=== PATIENT | male | born 1950 | race Asian ===

== ENCOUNTER 2017-06-22 16:09 | Inpatient (IN) | payer OTHER ==
[~2017-06-22] VITALS: Ht 170.2 cm; Wt 59.0 kg
[2017-06-22 16:11] VITALS: BP 120/70
[2017-06-22] MEDS ORDERED: CRAN450C PO (16:16)
[2017-06-22] MEDS ORDERED: PRED5TAB7 PO (16:17)
[2017-06-22] MEDS ORDERED: LACT1TAB34 PO (16:17)
[2017-06-22] MEDS ORDERED: ASCO500T45 PO (16:17)
[2017-06-22] MEDS ORDERED: MAGN400S60 PO (16:17)
[2017-06-22] MEDS ORDERED: SODI650T2 PO (16:17)
[2017-06-22] MEDS ORDERED: PANT40EC PO (16:17)
[2017-06-22] MEDS ORDERED: FURO-570 PO (16:17)
[2017-06-22] MEDS ORDERED: ACET-2619 PO (16:17)
[2017-06-22] MEDS ORDERED: RIFA550T PO (16:17)
[2017-06-22] MEDS ORDERED: FOLI1TAB90 PO (16:17)
[2017-06-22] MEDS ORDERED: DOCU-299 PO (16:17)
[2017-06-22] MEDS ORDERED: BISA-213 RC (16:17)
[2017-06-22] MEDS ORDERED: THIA-4 PO (16:17)
[2017-06-22] MEDS ORDERED: LACT10SO11 PO (16:17)
--- NOTE | 2017-06-22 16:21 | NUR ---
PATIENT PRESENTS TO ED WITH NO COMPLAINS BUT SENT FOR ABNORMAL LABS HYPOKALEMIA . PT STATES . DENIES N/V/D; SKIN IS JAUNDICE/WARM/DRY; AAOX4 WITH EVEN AND STEADY GAIT; LUNGS CLEAR BL; HR EVEN AND REGULAR; PT DENIES ANY FEVER, CP, SOB, OR COUGH AT THIS TIME; PATIENT STATES PAIN OF 0/10 AT THIS TIME; VSS; PATIENT POSITIONED FOR COMFORT; HOB ELEVATED; BEDRAILS UP X2; BED DOWN. ER MD MADE AWARE OF PT STATUS.
--- NOTE | 2017-06-22 16:49 | NUR ---
PT NOTED WITH FRAGILE SKIN AND SENAL PURPRUA ON BOTH ARMS HE ALSO HAS AN OLD SKIN TEAR ON R ARM. ALSO PT HAS F/C WITH 14 FENCH DRAINING YELLOW URINE.
--- NOTE | 2017-06-22 17:20 | NUR ---
AT BEDSIDE EVALUATING PT.
--- NOTE | 2017-06-22 17:42 | NUR ---
EKG AND LABS DRAWS DONE AT BEDSIDE PT COOPERATIVE.
[2017-06-22 17:47] LABS: HEMATOCRIT 29.6 % (36-52); HEMOGLOBIN 9.8 g/dL (12.0-18.0); MEAN CORPUSCULAR HEMOGLOBIN 36 pg (27-31); MEAN CORPUSCULAR HGB CONC 33 g/dL (33-37); MEAN CORPUSCULAR VOLUME 109.2 fL (80-94); PLATELET COUNT (AUTO) 155 K/uL (140-450); RED BLOOD CELL COUNT(AUTO) 2.71 MIL/uL (4.20-6.10); RED CELL DISTRIBUTION WIDTH 14.8 % (11.6-13.7); WHITE BLOOD COUNT (AUTO) 15.9 K/uL (4.8-10.8)
[2017-06-22 18:08] LABS: ALBUMIN 2.3 g/dL (3.4-5.0); ANION GAP 13.8 (8-16); CREATININE 0.8 mg/dL (0.7-1.3); TOTAL BILIRUBIN 6.3 mg/dL (0.0-1.0)
[2017-06-22 18:11] LABS: LYMPHOCYTES % (MANUAL) 3 % (20-46); MONOCYTES % (MANUAL) 2 % (5-12)
[2017-06-22 18:15] LABS: POTASSIUM 2.8 mmol/L (3.5-5.1)
[2017-06-22] MEDS ORDERED: POTASSIUM CHLORIDE 10 MEQ TABER PO ONE ×2 (18:30→22:55)
--- NOTE | 2017-06-22 18:41 | NUR ---
ULTRA SOUND AT BEDSIDE
--- NOTE | 2017-06-22 19:01 | NUR ---
taken to ct
[2017-06-22 19:04] LABS: APPEARANCE,URINE CLEAR (CLEAR); BILIRUBIN,URINE NEGATIVE (NEGATIVE); BLOOD, URINE TRACE-I (NEGATIVE); LEUKOCYTE ESTERASE ,URINE TRACE (NEGATIVE); NITRITE, URINE NEGATIVE (NEGATIVE); UGLUCOSE NEGATIVE (NEGATIVE)
[2017-06-22 19:19] LABS: COLOR,URINE STRAW (YELLOW)
[2017-06-22 19:25] LABS: RBC,URINE 3-10 (FEW) /HPF (0-5)
[2017-06-22 19:26] LABS: WBC,URINE 0-5 (RARE) /HPF (0-5)
--- NOTE | 2017-06-22 19:26 | NUR ---
REPORT RECEIVED FROM MAGDI BAUTISTA
[2017-06-22] MEDS ORDERED: ACETAMINOPHEN 325 MG TAB PO PRN (20:20)
[2017-06-22] MEDS ORDERED: ONDANSETRON 4 MG/2 ML VIAL IVP PRN (20:20)
[2017-06-22] MEDS ORDERED: HYDROcodone/APAP 7.5/325 MG 1 TAB PO PRN (20:20)
--- NOTE | 2017-06-22 20:25 | NUR ---
Quentin lanza in EDM - 06/22/17 at 2031 by PEYMAN Patient discharged with v/s stable. Written and verbal after care instructions given and explained. Patient verbalized understanding. Ambulatory with steady gait. All questions addressed prior to discharge. Advised to follow up with PMD.
--- NOTE | 2017-06-22 20:42 | NUR ---
Patient noted to have existing wounds upon arrival to ER. Photos taken of wound and placed in chart. Wound covered with dressing. Physician informed.
--- NOTE | 2017-06-22 20:45 | NUR ---
EMPTIED PARKER CATH, VOID 1600CC OUT, CLEAR YELLOW
[2017-06-22] MEDS ORDERED: DOCUSATE SODIUM 100 MG GELCAP PO SCH (21:00)
--- NOTE | 2017-06-22 21:03 | NUR ---
Pt transferred to [facility] viaBED with MAGDI BERNAL .
--- NOTE | 2017-06-22 21:10 | NUR ---
RECEIVED FROM ER PER ALBA AWAKE AND ALERT. ABLE TO VERBALIZE SIMPLE NEEDS. DX. OF HYPOKALEMIA. MEDICATED WITH POTASSIUM P.O. MEDICATION IN ER PER RN REPORT. WITH DECUBITUS ULCER IN THE SACRUM AND WITH PICTURE BY ER. PROVIDED WITH SNACK RT C/O HUNGER. ROM X 4. CLEAR SPEECH. A/O X 3. NO SOB. IVF SITE TO RIGHT WRIST #20 INTACT. AFEBRILE.
[2017-06-22 21:37] LABS: CHOL/HDL RATIO 4.5 (1-4.5); FREE T4 (FREE THYROXINE) 1.22 ng/dL (0.76-1.46); PHOSPHORUS 4.1 mg/dL (2.5-4.9); THYROID STIMULATING HORMONE 6.92 uIU/mL (0.34-3.74)
[2017-06-22 21:39] VITALS: BP 120/70
[2017-06-22 22:05] LABS: MAGNESIUM 0.9 mg/dL (1.8-2.4)
[2017-06-22] MEDS ORDERED: MAG SULF 2000 MG/WATER PREMIX 100 ML IV ONE (22:05)
--- NOTE | 2017-06-22 22:06 | NUR ---
CALLED RESIDENT MD MILLAN FOR MAGNESIUM LEVEL REPORTED TO ME BY LAB . TECH AT 2205 . MAGNESIUM LEVEL IS 0.9. INFORMED CHARGE NURSE .
[2017-06-22] MEDS: RIFAXIMIN 550 MG TAB PO SCH (22:10)
[2017-06-22] MEDS ORDERED: BISACODYL 10 MG SUPP RC PRN (22:10)
[2017-06-22] MEDS ORDERED: MAGNESIUM HYDROXIDE 2400 MG/30 ML UDC PO PRN (22:10)
[2017-06-22] MEDS ORDERED: LORazepam 2 MG/ML VIAL IVP PRN (22:45)
[2017-06-22] MEDS: PIPER/TAZO 3.375GM/D5W PREMIX 50 ML IV SCH ×2 (22:55→23:53)
[2017-06-22] MEDS ORDERED: PIPERACILLIN/TAZOBACTAM 3.375 GM VIAL IV ONE (23:14)
[2017-06-22] MEDS ORDERED: LACTULOSE 20 GM/30 ML UDC ONE (23:31)
[2017-06-22] MEDS: LACTULOSE 20 GM/30 ML UDC PO SCH (23:34)
--- NOTE | 2017-06-22 23:37 | NUR ---
MAG RIDER 4 GMS ORDERED INFUSING AT THIS TIME. PT. SLEEPING. NO PAIN COMPLAINTS DONE.
--- NOTE | 2017-06-22 23:46 | NUR ---
RIFAXAN P.O. 550 MG ORDERED PER MD TO START IN AM INSTEAD. CHARGE NURSE AWARE.
[2017-06-23] VITALS: BP 110/72
[2017-06-23 00:31] LABS: BARBITURATE, URINE NEGATIVE ng/ml (NEG <=200); BENZODIAZEPINE, URINE NEGATIVE ng/mL (NEG <=200); CANNABINOID, URINE NEGATIVE ng/mL (NEG <=50); COCAINE, URINE NEGATIVE ng/mL (NEG <=300); OPIATE, URINE NEGATIVE ng/mL (NEG <=2000); PHENCYCLIDINE SCREEN,URINE NEGATIVE ng/mL (NEG <=25)
--- NOTE | 2017-06-23 03:25 | NUR ---
OPEN WOUND TO SACRAL AREA CLEANSED WITH NS , PAT DRIED AND COVERED WITH 4X4 OPTIMUM FOAM.
[2017-06-23] MEDS ORDERED: PIPERACILLIN/TAZOBACTAM 3.375 GM VIAL IV ONE (05:08)
[2017-06-23] MEDS: PIPER/TAZO 3.375GM/D5W PREMIX 50 ML IV SCH ×3 (05:13→17:02)
[2017-06-23 06:10] VITALS: BP 122/78
--- NOTE | 2017-06-23 07:15 | NUR ---
TELEMETRY MONITORING.PT. AWAKE AND ALERT X 3. ABLE TO VERBALIZE NEEDS WELL. ENDORSED TO THE NEXT RN FOR CONTINUITY OF CARE. DX. HYPOKALEMIA.
--- NOTE | 2017-06-23 07:20 | NUR ---
RECEIVED REPORT FROM STEAM SETTER NURSE AT BEDSIDE FOR CONTINUITY OF CARE. PATIENT IN BED AWAKE AND ABLE TO MAKE NEEDS KNOWN.
[2017-06-23 07:24] LABS: BASOPHILS # (AUTO) 0.1 K/uL (0.00-0.22); BASOPHILS % (AUTO) 0.5 % (0.0-2.0); EOSINOPHILS % (AUTO) 0.2 % (0.0-4.0); HEMATOCRIT 26.1 % (36-52); HEMOGLOBIN 8.6 g/dL (12.0-18.0); LYMPHOCYTES # (AUTO) 0.6 K/uL (2.0-11.5); LYMPHOCYTES % (AUTO) 4.7 % (20.5-51.1); MEAN CORPUSCULAR HEMOGLOBIN 37 pg (27-31); MEAN CORPUSCULAR HGB CONC 33 g/dL (33-37); MEAN CORPUSCULAR VOLUME 111.6 fL (80-94); MONOCYTES # (AUTO) 0.8 K/uL (0.8-1.0); MONOCYTES % (AUTO) 6.6 % (1.7-9.3); NEUTROPHILS # (AUTO) 10.3 K/uL (1.8-7.7); PLATELET COUNT (AUTO) 125 K/uL (140-450); RED BLOOD CELL COUNT(AUTO) 2.34 MIL/uL (4.20-6.10); RED CELL DISTRIBUTION WIDTH 14.6 % (11.6-13.7); WHITE BLOOD COUNT (AUTO) 11.8 K/uL (4.8-10.8)
[2017-06-23 07:26] LABS: MAGNESIUM 2.2 mg/dL (1.8-2.4); PHOSPHORUS 3.1 mg/dL (2.5-4.9)
[2017-06-23 07:42] LABS: ANION GAP 13.8 (8-16); CARBON DIOXIDE 25.8 mmol/L (21-32); CREATININE 0.8 mg/dL (0.7-1.3); POTASSIUM 3.6 mmol/L (3.5-5.1)
--- NOTE | 2017-06-23 08:00 | NUR ---
INITIAL ASSESSMENT PERFORMED . PATIENT ALERT AND ABLE TO MAKE NEEDS KNOWN WITH SOME NOTED CONFUSION. NO ACUTE DISTRESS. RESP EVEN AND UNLABORED. BOWEL SOUNDS ACTIVE. PATIENT STATES DOES NOT KNOWN LAST BM. DENIES PAIN AT THIS TIME. PATIENT ON FALL. IV SITE TO RIGHT WRIST 20G SL. PATIENT WITH SACRAL PRESSURE WOUND WITH DRY DSG IN PLACE. WITH SCANT DRAINAGE NOTED ON DRESSING. PATIENT WITH FC PATENT AND INTACT. WITH YELLOW URINE IN DRAINAGE BAG. SKIN JAUNDICED ABDOMEN FIRM AND ROUND. SCLERA YELLOW. DISCUSSED PLAN OF CARE WITH PATIENT AT BEDSIDE. PATIENT STATED UNDERSTANDING AND AGREEMENT. ORIENTED TO ROOM. CALL LIGHT WITHIN REACH. WILL CONT TO MONITOR.
--- NOTE | 2017-06-23 08:30 | NUR ---
FAXED [facility] FOR PATIENT HOSPITAL RECORDS FROM LAST ADMISSION THERE. PATIENT SIGNED CONSENT FOR RELEASE OF RECORDS. AWAITING RESPONSE FROM [facility]
[2017-06-23] MEDS: PANTOPRAZOLE 40 MG TABEC PO SCH ×2 (08:53→22:06)
[2017-06-23] MEDS: RIFAXIMIN 550 MG TAB PO SCH ×2 (08:53→22:06)
[2017-06-23] MEDS: LACTULOSE 20 GM/30 ML UDC PO SCH ×4 (08:53→17:02)
[2017-06-23] MEDS: SODIUM BICARBONATE 650 MG TAB PO SCH ×2 (08:54→22:07)
[2017-06-23] MEDS: DOCUSATE SODIUM 100 MG GELCAP PO SCH ×2 (08:54→22:06)
[2017-06-23] MEDS: LACTOBACILLUS RHAMNOSUS GG 1 EACH CAP PO SCH (08:54)
[2017-06-23] MEDS: MULTIVITAMIN 1 TAB PO SCH (08:54)
[2017-06-23] MEDS: THIAMINE 100 MG TAB PO SCH (08:55)
[2017-06-23] MEDS: ASCORBIC ACID 500 MG TAB PO SCH ×2 (08:55→22:07)
--- NOTE | 2017-06-23 08:55 | NUR ---
ADMINISTERED PATIENT MEDICATION SCHEDULED WITHOUT DIFFICULTIES. TOLERATED WELL. WILL CONT TO MONITOR.
[2017-06-23] MEDS ORDERED: FUROSEMIDE 40 MG TAB PO SCH (09:00)
--- NOTE | 2017-06-23 10:00 | NUR ---
PATIENT CALLING FOR ASSISTANCE WITH TOILETING. PATIENT ASSISTED TO BEDPAN AT THIS TIME. PATIENT HAD BM. GOOD PERICARE PROVIDED WILL CONT TO MONITOR.
--- NOTE | 2017-06-23 10:02 | NUR ---
PATIENT HAS BEEN SCREENED AND CATEGORIZED MODERATE NUTRITION RISK. PATIENT WILL BE SEEN WITHIN 3-5 DAYS OF ADMISSION. 06/26/17 - 06/28/[address] Addendum: 06/23/17 at [address] DATE CORRECTION: 06/25/17 - 06/27/[address]
--- NOTE | 2017-06-23 11:21 | NUR ---
WOUND CARE EVALUATION NOTES: REASON FOR EVALUATION: SACRAL WOUND SKIN ASSESSMENT DONE ON THIS 66Y/O MALE PATIENT FROM [facility] TO [facility], WITH INITIAL DIAGNOSIS OF ABNORMAL LABS. PAST MEDICAL HISTORY INCLUDE HTN AND LIVER CIRRHOSIS. ALL ABOVE INFORMATION WAS OBTAINED FROM THE ADMISSION H&P. LABS ARE WBC 11.8, H/H 8.6/26.1, GLUCOSE 115, ALBUMIN 2.3. PATIENT IS AWAKE, ALERT, AND ABLE TO FOLLOW COMMANDS. SKIN WARM TO TOUCH, THICKENED TOENAILS, BLE NO EDEMA, NO HAIR GROWTH AND BILATERAL PEDAL PULSES PRESENT.CAPILLARY REFILLE <3 SEC. SKIN COLOR PALE AND YELLOW IN COLOR. PLAN OF CARE AND PRESSURE PREVENTIVE MEASURES DISCUSSED WITH PT AND PRIMARY NURSE. PT ABLE TO VERBALIZE UNDERSTANDING. INTEGUMENTARY: SKIN DRYNESS TO TRUNK, BACK, UE AND LE MULTIPLE ECCHYMOSIS TO BILATERAL UPPER EXTREMITIES 2 SKIN TEARS TO RIGHT FOREARM WITH LARGEST MEASURE 2X1.5X0.1 SACRAL PRESSURE INJURY UN-STAGEABLE 2X2CM WITH WOUND BED 100 % YELLOW SLOUGH COVERED, PERIWOUND PALE PINK, SKIN INTACT, WOUND EDGE WELL DEFINED, NO ODOR, NO DRAINAGE. PAIN 1/10. RECOMMENDATIONS: -DEBRIDEMENT TO SACRAL WOUND -CLEANSE SACRAL PRESSURE INJURY WITH NS AND GAUZE, PAT DRY, APPLY THERAHONEY GEL,COVER WITH ADAPTIC AND DRY DRESSING SECURE WITH TAPE Q DAY AND PRN IF SOILING -CLEANSE SKIN TEARS WITH NS. APPLY VERSATEL DRESSING COVER WITH DRY DRESSING ,SECURE WITH TAPE, CHANGE Q5 DAYS AND PRN IF SOILING -TURN AND REPOSITION PATIENT Q2H TO LEFT AND RIGHT SIDE ONLY TO OFFLOAD SACRALCOCCYX -ASSESS AND MONITOR SKIN CONDITION DURING POSITION CHANGE, PLEASE PAY ATTENTION TO SACRALCOCCYX -OFFLOAD BILATERAL HEELS BY PLACING PILLOWS UNDER CALVES AT ALL TIMES, UNLESS OTHERWISE CONTRAINDICATED -PRESSURE REDISTRIBUTION SURFACE THERAPY -KEEP SKIN CLEAN AND DRY AT ALL TIMES. -APPLY BODY TO DRY SKIN AREAS QD RECOMMENDATIONS DISCUSSED WITH PRIMARY RN AND DR. CONNOLLY WILL FOLLOW UP PATIENT Q 7 -10 DAYS AND PRN. PLEASE CONTACT WOUND CARE NURSE FOR ANY QUESTION OR CHANGES IN WOUND CONDITION
[2017-06-23 12:00] VITALS: BP 130/70
--- NOTE | 2017-06-23 12:10 | NUR ---
PATIENT IN BED . NO ACUTE DISTRESS. STATING HE IS WAITING FOR HIS FRIENDS TO COME VISIT HIM. STATES HE IS HAVING A LOT OF BM TODAY. EDUCATED PATIENT ON EFFECTS OF LACTULOSE AND BM. PATIENT STATED UNDERSTANDING AND AGREEMENT. WILL CONT TO MONITOR.
--- NOTE | 2017-06-23 14:17 | NUR ---
PATIENT HAD BM GOOD PERICARE PROVIDED. FAMILY AT BEDSIDE.WILL CONT TO MONITOR.
--- NOTE | 2017-06-23 15:54 | NUR ---
VS GATHERED. PATIENT CHANGED HAD XL BM. GOOD PERICARE PROVIDED. PATIENT CHANGED TO WOUND CARE BED. PT TOLERATED WELL. FUNCTIONING APPROPRIATELY. NO ACUTE DISTRESS. WILL CONT TO MONITOR.
[2017-06-23 16:00] VITALS: BP 126/62
--- NOTE | 2017-06-23 17:32 | NUR ---
PATIENT REFUSED LACTULOSE THIS EVENING STATING HE HAS HAD TOO MUCH BM TODAY AND WOULD LIKE TO RESUME LACTULOSE TOMORROW. EDUCATED BENEFITS AND RISKS X3. CONTINUE TO REFUSE MEDICATION. PATIENT ATB GIVEN AT THIS TIME TOLERATED WELL.
[2017-06-23] MEDS: predniSONE 5 MG TAB PO SCH (18:40)
--- NOTE | 2017-06-23 19:29 | NUR ---
ENDORSED REPORT AT BEDSIDE TO FRONT EDGER NURSE FOR CONTINUITY OF CARE. PATIENT STABLE.
--- NOTE | 2017-06-23 19:30 | NUR ---
RECEIVED FROM AM RN IN BED WATCHING TV AWAKE AND ALERT. NO SOB. DENIES ANY PAIN AT THIS TIME. CALL LIGHT WITH IN REACH AND CARE PLANS FOR THE NIGHT DISCUSSED WITH HIM. ABLE TO VERBALIZE NEEDS WELL. AFEBRILE. TELEMETRY MONITORING.
[2017-06-23 20:09] VITALS: BP 114/64
[2017-06-23] MEDS ORDERED: FOLIC ACID 1 MG TAB PO SCH (21:00)
--- NOTE | 2017-06-23 23:09 | NUR ---
RESIDENT MD MILLAN TO CHANGE PREDNISONE P.O. FOR 1800 DOSE TO SOLUMEDROL IVP AT THIS TIME. SHE STATED WE WILL CONTINUE TO GO P.O. TOMORROW .
[2017-06-23] MEDS ORDERED: methylPREDNISolone SS 40 MG/ML VIAL IVP ONE (23:10)
[2017-06-24] VITALS: BP 126/68
--- NOTE | 2017-06-24 00:09 | NUR ---
NEW LINE INSERTED TO RIGHT HAND #22 RT OLD IVF SITE PULLED OUT BY PT. ACCIDENTALLY. TIP INTACT. COVERED WITH BAND AID. NO BLEEDING . ENCOURAGED TO BE CAREFUL WITH NEW IVF SITE. "OK"
[2017-06-24] MEDS: PIPER/TAZO 3.375GM/D5W PREMIX 50 ML IV SCH ×3 (00:11→12:00)
[2017-06-24 04:33] VITALS: BP 92/50
--- NOTE | 2017-06-24 04:35 | NUR ---
WOKE UP WHEN VITAL SIGNS TAKEN. PT. ASKING WHEN BREAKFAST WILL BE. CALL LIGHT WITH IN REACH. DENIES PAIN. USES CALL LIGHT FOR HELP.
--- NOTE | 2017-06-24 07:20 | NUR ---
RECEIVED REPORT FROM ISSUE CLERK NURSE DALIA AT BEDSIDE FOR CONTINUITY OF CARE. PT IS AWAKE AND ORIENTED X4. INTRODUCED SELF AND UPDATED BOARD. PT IS SITTING IN BED WAITING FOR BREAKFAST TRAY. DENIES PAIN. IV TO R HAND 22G INTACT. PT WITH SACRAL WOUND. ON RA. NO SOB. PARKER CATHETER IN PLACE. BED IN LOW POSITION, WHEELS LOCKED, CALL LIGHT WITHIN REACH. WILL CONTINUE TO MONITOR.
[2017-06-24 07:22] LABS: HEPATITIS A ANTIBODY IGM Negative (Negative); HEPATITIS B CORE AB TOTAL Negative (Negative); HEPATITIS B SURFACE ANTIBODY Non Reactive (.); HEPATITIS B SURFACE ANTIGEN Negative (Negative)
[2017-06-24 08:00] VITALS: BP 114/66
[2017-06-24] MEDS: predniSONE 5 MG TAB PO SCH (09:00)
[2017-06-24] MEDS: DOCUSATE SODIUM 100 MG GELCAP PO SCH (09:00)
[2017-06-24] MEDS: LACTULOSE 20 GM/30 ML UDC PO SCH ×2 (09:00→13:00)
[2017-06-24] MEDS ORDERED: THERAHONEY WOUND DRESSING TP SCH (09:00)
[2017-06-24] MEDS: LACTOBACILLUS RHAMNOSUS GG 1 EACH CAP PO SCH (09:05)
[2017-06-24] MEDS: MULTIVITAMIN 1 TAB PO SCH (09:06)
[2017-06-24] MEDS: THIAMINE 100 MG TAB PO SCH (09:06)
[2017-06-24] MEDS: PANTOPRAZOLE 40 MG TABEC PO SCH (09:08)
[2017-06-24] MEDS: SODIUM BICARBONATE 650 MG TAB PO SCH (09:08)
[2017-06-24] MEDS: ASCORBIC ACID 500 MG TAB PO SCH (09:09)
[2017-06-24] MEDS: RIFAXIMIN 550 MG TAB PO SCH (09:10)
--- NOTE | 2017-06-24 09:13 | NUR ---
ADMINISTERED SCHEDULED MEDS. PT TOOK PO MEDS 3 AT A TIME AND TOLERATED WELL. NON ADMIN COLACE AND LACTULOSE. PT REFUSED MED AND HAD AN INCONTINENT BM OF MODERATED AMOUNT. CHANGED LINENS AND CLEANED PT. CHANGED DRESSING TO SACRAL WOUND AND APPLIED THERAHONEY GEL. PT TOLERATED WELL. NO SIGNS OF DISTRESS. PT ASKING ABOUT WHEN HE WILL BE TRANSFERRED. TOLD PT WAITING FOR DR ORDER AND TRANSPORTER. VERBALIZED UNDERSTANDING. CALL LIGHT WITHIN REACH. WILL CONTINUE TO MONITOR.
--- NOTE | 2017-06-24 11:10 | NUR ---
FAXED R[facility]OLFOT REVIEW TO [facility] [employer] [phone] PHONE [phone] OPT 1 I CALLED CHRISTIANO FROM THE INSURANCE AND SHE SAID THAT SHE IS FROM [employer]. SHE SAID THAT [facility] IS RESPONSIBLE FOR THE TRANSPORT AND CALL [phone]. I CALLED AND SPOKE WITH KYLEIGH AND HE SAID THE PATIENT HAS TRANSPORT BENEFIT AND FOR THE TRANSPORT TO CALL THEM AT [phone]. I CALLED [facility] FOR [facility]SPORT AND INFORMED THEM TO CALL [facility]. I WAS INFORMED BY BELLA THERE THAT THEY CANOT CALL [facility] AND THEY ARE NOT CONTRACTED WITH THEM.
--- NOTE | 2017-06-24 11:46 | NUR ---
CALLED [employer] BACK AND SPOKE WITH RAJ. SHE SAID THEY DO NOT DO AUTH, [facility] BUT THE TRANSPORT CAN BILL [facility]] FOR THE TRANSPORT. SHE SAID THE ADDRESS FOR [facility] IS [address] [address] [place], [place] [address]. I CALLED [facility] AND SPOKE WITH KRISTINE AND GAVE HER THE INFORMATION. THEY WILL BILL THE INSURANCE. PICKUP TIME WILL BE 1P.MGhassan AVILA RN AWARE.
[2017-06-24 11:51] VITALS: BP 111/61
[2017-06-24] MEDS ORDERED: LACT10CA PO (11:52)
[2017-06-24] MEDS ORDERED: LEVO750T2 PO (11:54)
--- NOTE | 2017-06-24 12:00 | NUR ---
NONADMIN SCHEDULED MEDS. PT STATED HE IS GOING BACK AND LEAVING TODAY AND DOES NOT WANT IV MED OR LACTULOSE. WAITING FOR TRANSPORT. WILL CONTINUE TO MONITOR.
--- NOTE | 2017-06-24 12:23 | NUR ---
CALLED [facility] AND GAVE REPORT TO SMITA. LEFT CALL BACK NUMBER
[2017-06-24 12:30] LABS: FOLIC ACID 14.3 ng/mL (>3.0)
--- NOTE | 2017-06-24 12:45 | NUR ---
PT RECEIVED AND SIGNED OUT BELONGINGS FROM [facility].
--- NOTE | 2017-06-24 13:30 | NUR ---
PT D/C TO GO TO SNF. GAVE DC FORMS, INSTRUCTIONS, RX, LABS, AND FOLLOW UP. PT VERBALIZED UNDERSTANDING AND SIGNED FORMS. REMOVED IV TO R HAND 22G. IV CATHETER TIP INTACT. APPLIED DRESSING AND PRESSURE TO SITE. NO BLEEDING NOTED. PT LEFT WITH ALL PERSONAL BELONGINGS. LEFT UNIT VIA WHEELCHAIR ACCOMPANIED BY TRANSPORTER. LEFT IN STABLE CONDITION.
--- NOTE | 2017-06-25 15:06 | NUR ---
CM NOTE DISCHARGE SUMMARY FAXED TO [facility] / FAX# [phone]
== END 2017-06-24 13:30 | disposition home or self-care (01) | DRG 871 ==
LOC: MED 16:09 → MTU 20:10
PROVIDERS: ADMIT Family Medicine Sports Medicine; ATTEND Family Medicine Sports Medicine
DX: A41.9 Sepsis, unspecified organism (principal); E43 Unspecified severe protein-calorie malnutrition; L89.150 Pressure ulcer of sacral region, unstageable; K70.31 Alcoholic cirrhosis of liver with ascites; E83.42 Hypomagnesemia; D50.9 Iron deficiency anemia, unspecified; E11.9 Type 2 diabetes mellitus without complications; E87.1 Hypo-osmolality and hyponatremia; N39.0 Urinary tract infection, site not specified; B19.20 Unspecified viral hepatitis C without hepatic coma; E87.6 Hypokalemia; K59.00 Constipation, unspecified; Z68.20 Body mass index [BMI] 20.0-20.9, adult; R74.0 Nonspecific elevation of levels of transaminase and lactic acid dehydrogenase [LDH]; Z87.891 Personal history of nicotine dependence; I10 Essential (primary) hypertension; Z66 Do not resuscitate; F10.21 Alcohol dependence, in remission; D53.9 Nutritional anemia, unspecified
CPT/HCPCS: 36415; 71045; 76705; 80048; 80053; 80305; 81001; 82140; 82150; 82607; 82728; 82746; 83036; 83540; 83605; 83690; 83735; 83880; 84100; 84439; 84443; 84484; 85025; 85045; 85610; 85730; 86704; 86706; 86708; 86709; 86803; 87040; 87081; 87086; 87340; 93005; 99285; J2543; J2920; J3475; J7030; J7060; Q0092